=== PATIENT | male | born 1965 | race Caucasian/White ===

== ENCOUNTER 2019-12-29 04:04 | Emergency (ER) | payer SELFPAY ==
[~2019-12-29] VITALS: Ht 188 cm; Wt 104.3 kg
[2019-12-29 04:05] VITALS: BP 139/78
--- NOTE | 2019-12-29 04:11 | Emergency Room Report ---
History of Present Illness General Chief Complaint: Multiple Trauma/Fall Source: Patient (Bruce Wolff MD) Present Illness HPI Disclaimer: Please note that this report is being documented using DRAGON technology. This can lead to erroneous entry secondary to incorrect interpretation by the dictating instrument. HPI: 55-year-old male presents for evaluation of intoxication and head laceration. He is a [place]-speaking male and information was obtained through the use of an translator and interpreter. He cannot recall today's events or how he injured his head. He is complaining of pain over the left side of the scalp. Denies nausea or vomiting. Poor historian overall. PMH: Denies PSH: Reviewed Allergies: Denies Social Hx: Alcohol use (Bruce Wolff MD) Allergies: Coded Allergies: No Known Allergies (Unverified , 12/29/19) COVID-19 Screening Contact w/high risk pt: No Experienced COVID-19 symptoms?: No COVID-19 Testing performed OCEAN LIFEGUARD: No (Bruce Wolff MD) Nursing Documentation-PMH Past Medical History: No Stated History (Bruce Wolff MD) Review of Systems All Other Systems: limited - Due to intoxication and poor cooperation (Bruce Wolff MD) Physical Exam Vital Signs Date Time Temp Pulse Resp B/P (MAP) Pulse Ox O2 Delivery O2 Flow Rate FiO2 12/29/19 04:03 98.2 89 18 142/80 (100) 99 Room Air General: Awake and alert, no acute distress, mild dysarthria HEENT: Normocephalic. 4 cm linear and superficial laceration over the occiput predominantly on the left side. Hemostatic. No obvious debris. EOMI. PERRLA. Mild dysarthria Cardiovascular: RRR. S1 and S2 normal. No murmur appreciated Resp: Normal work of breathing. No cough, wheezing or crackles appreciated Abdomen: Abdomen is soft, nondistended. Nontender Skin: Intact. No abrasions, laceration or rash over the exposed skin MSK: Normal tone and bulk. Moving all extremities. No obvious deformity. Neuro: Awake, poor historian. Appears intoxicated with mild dysarthria. (Bruce Wolff MD) Medical Decision Making Diagnostic Impression: Primary Impression: Scalp laceration Additional Impression: Alcohol intoxication ER Course Is a 55-year-old male presenting for evaluation of head injury. Concern for intoxication and possible intracranial or spinous injury. Labs and CTs of head and cervical spine were ordered. Labs largely unremarkable aside from elevated alcohol. Tetanus updated. The small scalp laceration is superficial does not require closure. Wound was cleaned and the patient is sleeping comfortably. Contacted by radiology for possible small punctate bleed in the right frontal lobe versus artifact. MRI ordered to differentiate. Laboratory Tests Test 12/29/19 04:20 White Blood Count 9.6 K/UL (4.8-10.8) Red Blood Count 4.75 M/UL (4.70-6.10) Hemoglobin 15.9 G/DL (14.2-18.0) Hematocrit 47.3 % (42.0-52.0) Mean Corpuscular Volume 100 FL (80-99) H Mean Corpuscular Hemoglobin 33.5 PG (27.0-31.0) H Mean Corpuscular Hemoglobin Concent 33.6 G/DL (32.0-36.0) Red Cell Distribution Width 12.1 % (11.6-14.8) Platelet Count 196 K/UL (150-450) Mean Platelet Volume 6.4 FL (6.5-10.1) L Neutrophils (%) (Auto) 67.7 % (45.0-75.0) Lymphocytes (%) (Auto) 20.8 % (20.0-45.0) Monocytes (%) (Auto) 8.9 % (1.0-10.0) Eosinophils (%) (Auto) 1.7 % (0.0-3.0) Basophils (%) (Auto) 1.0 % (0.0-2.0) Prothrombin Time 10.0 SEC (9.30-11.50) Prothrombin Time INR 0.9 (0.9-1.1) Activated Partial Thromboplast Time 25 SEC (23-33) Sodium Level 143 MMOL/L (136-145) Potassium Level 3.6 MMOL/L (3.5-5.1) Chloride Level 106 MMOL/L (98-107) Carbon Dioxide Level 24 MMOL/L (21-32) Anion Gap 13 mmol/L (5-15) Blood Urea Nitrogen 14 mg/dL (7-18) Creatinine 1.0 MG/DL (0.55-1.30) Estimated Glomerular Filtration Rate > 60 mL/min (>60) Glucose Level 120 MG/DL (74-106) H Calcium Level 8.2 MG/DL (8.5-10.1) L Serum Alcohol 316 mg/dL (Bruce Wolff MD) ER Course Patient CT imaging did show some evidence of questionable hemorrhage versus artifact. MRI was subsequently performed and no acute findings were seen in the head or brain. Patient was observed in the emergency department was stable throughout stay. Patient appears to be more sober and appears to be stable for discharge. Patient be discharged home. He is advised to avoid excessive alcohol intake. To return if worse.Patient was able to ambulate with a steady gait. Was discharged with his brother. The patient is advised to follow up with primary care doctor in 1-2 days. Patient is advised to return if any worsening condition or if any changes in status that are concerning. This report is dictated with Zen99 trimmer and borer machine operator software which may occasionally lead to discrepancies related to use of this software. Labs Test 12/29/19 04:20 White Blood Count 9.6 K/UL (4.8-10.8) Red Blood Count 4.75 M/UL (4.70-6.10) Hemoglobin 15.9 G/DL (14.2-18.0) Hematocrit 47.3 % (42.0-52.0) Mean Corpuscular Volume 100 FL (80-99) Mean Corpuscular Hemoglobin 33.5 PG (27.0-31.0) Mean Corpuscular Hemoglobin Concent 33.6 G/DL (32.0-36.0) Red Cell Distribution Width 12.1 % (11.6-14.8) Platelet Count 196 K/UL (150-450) Mean Platelet Volume 6.4 FL (6.5-10.1) Neutrophils (%) (Auto) 67.7 % (45.0-75.0) Lymphocytes (%) (Auto) 20.8 % (20.0-45.0) Monocytes (%) (Auto) 8.9 % (1.0-10.0) Eosinophils (%) (Auto) 1.7 % (0.0-3.0) Basophils (%) (Auto) 1.0 % (0.0-2.0) Prothrombin Time 10.0 SEC (9.30-11.50) Prothromb Time International Ratio 0.9 (0.9-1.1) Activated Partial Thromboplast Time 25 SEC (23-33) Sodium Level 143 MMOL/L (136-145) Potassium Level 3.6 MMOL/L (3.5-5.1) Chloride Level 106 MMOL/L (98-107) Carbon Dioxide Level 24 MMOL/L (21-32) Anion Gap 13 mmol/L (5-15) Blood Urea Nitrogen 14 mg/dL (7-18) Creatinine 1.0 MG/DL (0.55-1.30) Estimat Glomerular Filtration Rate > 60 mL/min (>60) Glucose Level 120 MG/DL (74-106) Calcium Level 8.2 MG/DL (8.5-10.1) Serum Alcohol 316 mg/dL (August Carmona MD) Last Vital Signs Date Time Temp Pulse Resp B/P (MAP) Pulse Ox O2 Delivery O2 Flow Rate FiO2 12/29/19 04:03 98.2 89 18 142/80 (100) 99 Room Air (Bruce Wolff MD) Status: improved (August Carmona MD) Disposition: HOME, SELF-CARE Condition: Stable Scripts Thiamine Hcl* (VITAMIN B-1*) 100 Mg Tablet 100 MG ORAL DAILY, #30 TAB 0 Refills Prov: Bruce Wolff MD 12/29/19 Folic Acid* (FOLIC ACID*) 1 Mg Tablet 1 MG ORAL DAILY, #30 TAB Prov: Bruce Wolff MD 12/29/19 Bruce Wolff MD Dec 29, 2019 04:11 August Carmona MD Dec 29, 2019 09:37
[2019-12-29] MEDS ORDERED: Tetanus/Diptheria/Pertussis IM ONE (04:15)
[2019-12-29 05:04] LABS: EOSINOPHILS % (AUTO) 1.7 % (0.0-3.0); HEMATOCRIT 47.3 % (42.0-52.0); HEMOGLOBIN 15.9 G/DL (14.2-18.0); LYMPHOCYTES % (AUTO) 20.8 % (20.0-45.0); MEAN CORPUSCULAR VOLUME 100 FL (80-99); MONOCYTES % (AUTO) 8.9 % (1.0-10.0); NEUTROPHILS % (AUTO) 67.7 % (45.0-75.0); PLATELET COUNT 196 K/UL (150-450); RED BLOOD COUNT 4.75 M/UL (4.70-6.10); RED CELL DISTRIBUTION WIDTH 12.1 % (11.6-14.8); WHITE BLOOD COUNT 9.6 K/UL (4.8-10.8)
[2019-12-29 05:11] LABS: INR 0.9 (0.9-1.1)
[2019-12-29 05:20] LABS: ANION GAP 13 mmol/L (5-15); BLOOD UREA NITROGEN 14 mg/dL (7-18); CALCIUM 8.2 MG/DL (8.5-10.1); CARBON DIOXIDE 24 MMOL/L (21-32); CHLORIDE 106 MMOL/L (98-107); POTASSIUM 3.6 MMOL/L (3.5-5.1); SODIUM 143 MMOL/L (136-145)
[2019-12-29] MEDS ORDERED: VITAMIN B-1100 MG ORAL (05:42)
[2019-12-29] MEDS ORDERED: FOLIC ACID1 MG ORAL (05:42)
--- NOTE | 2019-12-29 06:26 | Diagnostic Imaging Report ---
ADDENDUM - Added by Collins Wallace M.D. on 12/29/2019 6:26 AM (-07:00) EXAM: CT Head Without Intravenous Contrast CLINICAL HISTORY: INJ TECHNIQUE: Axial computed tomography images of the head/brain without intravenous contrast. CTDI is 53.4 mGy and DLP is 1312.6 mGy-cm. One or more of the following dose reduction techniques were used: automated exposure control, adjustment of the mA and/or kV according to patient size, use of iterative reconstruction technique. Coronal reformatted images were created and reviewed. COMPARISON: No relevant prior studies available. FINDINGS: Brain: Hyperdensity seen within the left frontal lobe on image 29, series 3 favor artifact rather than hemorrhage. Mild chronic small vessel ischemic change. No evolving territorial infarction. No edema. No mass effect. Ventricles: Unremarkable. No ventriculomegaly. Bones/joints: Chronic fracture deformities of the nasal bones.. No acute fracture. Soft tissues: Unremarkable. Sinuses: Right maxillary sinus and left anterior ethmoid sinus mucous retention cysts. No acute sinusitis. Mastoid air cells: Unremarkable as visualized. No mastoid effusion. IMPRESSION: Hyperdensity seen within the left frontal lobe on image 29, series 3 favor artifact rather than hemorrhage. <MYCVCSECTION> Communications: 12/29/19 06:30 Call Doctor Regarding Above results, called DR Wolff on 12/28 06:30 (-07:00)
--- NOTE | 2019-12-29 06:48 | Diagnostic Imaging Report ---
EXAM: CT Cervical Spine Without Intravenous Contrast CLINICAL HISTORY: INJ TECHNIQUE: Axial computed tomography images of the cervical spine without intravenous contrast. CTDI is 9.3 mGy and DLP is 274.6 mGy-cm. One or more of the following dose reduction techniques were used: automated exposure control, adjustment of the mA and/or kV according to patient size, use of iterative reconstruction technique. Coronal and sagittal reformatted images were created and reviewed. COMPARISON: No relevant prior studies available. FINDINGS: Vertebrae: No cervical spine fracture. Discs/spinal canal/neural foramina: Posterior disc osteophyte complexes suspected at C3/C4, C4/C5, C5/C6 and C6/C7. Left neural foraminal stenosis of C4/C5. Bilateral neuroforaminal stenosis at C5/C6. Left neuroforaminal stenosis of C6/C7. Soft tissues: Unremarkable. Lung apices: Bilateral dependent atelectasis in the visualized lung apices. Other bones: Degenerative changes of the right shoulder. IMPRESSION: 1. No cervical spine fracture. 2. Bilateral dependent atelectasis in the visualized lung apices.
[2019-12-29] MEDS ORDERED: LORazepam Inj 2mg/ml 1ml IV ONE (08:45)
[2019-12-29] MEDS ORDERED: LORazepam Inj 2mg/ml 1ml ONE (08:46)
[2019-12-29 09:20] VITALS: BP 131/72
--- NOTE | 2019-12-29 09:29 | Diagnostic Imaging Report ---
EXAM: MR Head Without Intravenous Contrast CLINICAL HISTORY: BRAIN BLD TECHNIQUE: Magnetic resonance images of the head/brain without intravenous contrast in multiple planes. COMPARISON: CT head today FINDINGS: Brain: Unremarkable. No mass. No hemorrhage. No acute infarct. Ventricles: Unremarkable. No ventriculomegaly. Bones/joints: Unremarkable. Sinuses: Mild ethmoid sinus mucosal thickening. No acute sinusitis. Mastoid air cells: Unremarkable as visualized. No mastoid effusion. Orbits: Unremarkable as visualized. IMPRESSION: No acute findings in the head/brain.
[2019-12-29 12:05] VITALS: BP 138/81
== END 2019-12-29 12:05 | disposition home or self-care (01) ==
LOC: EDBD 04:04 → EMR 04:15 → EDBD 04:15 → EMR 12:05
DX: S01.01XA Laceration without foreign body of scalp, initial encounter (principal); F10.129 Alcohol abuse with intoxication, unspecified; Z23 Encounter for immunization; X58.XXXA Exposure to other specified factors, initial encounter; Y92.9 Unspecified place or not applicable
CPT/HCPCS: 36415; 70450; 70551; 72125; 80048; 85025; 85610; 85730; 90471; 90715; 96374; 99284; G0480